=== PATIENT | male | born 1955 | race Caucasian/White ===

== ENCOUNTER 2017-07-27 10:07 | Emergency (ER) | payer BC ==
[~2017-07-27] VITALS: Ht 180.3 cm; Wt 113.4 kg
[~2017-07-27 10:07] MED LIST: CEFADROXIL500 MG PO; METFORMIN HCL500 MG
[2017-07-27] MEDS ORDERED: METOPROLOL-HCT1 EAC2 (10:41)
[2017-07-27] MEDS ORDERED: ASPIR 8181 MG (10:57)
== END 2017-07-27 12:28 | disposition home or self-care (01) ==
LOC: ER 10:07
DX: S61.022A Laceration with foreign body of left thumb without damage to nail, initial encounter (principal); W26.0XXA Contact with knife, initial encounter; Y93.89 Activity, other specified; Y92.89 Other specified places as the place of occurrence of the external cause; Y99.8 Other external cause status

== ENCOUNTER 2021-09-10 09:28 | Outpatient (CLI) | payer OTHER, BC ==
[~2021-09-10 09:28] MED LIST changes: +ASPIR 8181 MG; +METOPROLOL-HCT1 EAC2
[2021-09-10] MEDS ORDERED: ELIQUIS5 MG PO (11:45)
[2021-09-10] MEDS ORDERED: LIPITOR20 MG PO (11:46)
[2021-09-10] MEDS ORDERED: AMLODIPINE-OLM1 EAC2 (11:46)
[2021-09-10] MEDS ORDERED: HORIZANT300 MG PO (11:46)
[2021-09-10] MEDS ORDERED: [UNRECOGNIZED DRUG - OTHER] (11:48)
[2021-09-10] MEDS ORDERED: ZINC50 M1 PO (11:48)
== END 2021-09-10 09:30 | disposition home or self-care (01) ==
LOC: NUCLEAR 09:28
PROVIDERS: ATTEND General Practice
DX: I73.9 Peripheral vascular disease, unspecified (principal); R60.0 Localized edema

== ENCOUNTER 2021-09-10 11:05 | Emergency (ER) | payer OTHER, BC ==
[~2021-09-10] VITALS: Ht 180.3 cm; Wt 84.4 kg
[2021-09-10] MEDS ORDERED: ELIQUIS5 MG PO (11:45)
[2021-09-10] MEDS ORDERED: LIPITOR20 MG PO (11:46)
[2021-09-10] MEDS ORDERED: HORIZANT300 MG PO (11:46)
[2021-09-10] MEDS ORDERED: AMLODIPINE-OLM1 EAC2 (11:46)
[2021-09-10] MEDS ORDERED: [UNRECOGNIZED DRUG - OTHER] (11:48)
[2021-09-10] MEDS ORDERED: ZINC50 M1 PO (11:48)
== END 2021-09-10 13:04 | disposition home or self-care (01) ==
LOC: ER 11:05
DX: M79.605 Pain in left leg (principal); E11.9 Type 2 diabetes mellitus without complications; Z79.84 Long term (current) use of oral hypoglycemic drugs; I10 Essential (primary) hypertension; Z88.2 Allergy status to sulfonamides

== ENCOUNTER → 2021-09-13 09:10 | Outpatient (CLI) | payer OTHER, BC ==
[~2021-09-13 09:10] MED LIST changes: +AMLODIPINE-OLM1 EAC2; +ELIQUIS5 MG PO; +HORIZANT300 MG PO; +LIPITOR20 MG PO; +ZINC50 M1 PO; +[UNRECOGNIZED DRUG - OTHER]
== END | disposition home or self-care (01) ==
LOC: NUCLEAR 06:45
PROVIDERS: ATTEND General Practice
DX: I73.9 Peripheral vascular disease, unspecified (principal); R60.0 Localized edema

== ENCOUNTER 2021-09-20 08:00 | Outpatient (CLI) | payer OTHER, BC | END 2021-09-20 08:30 | disposition home or self-care (01) | LOC: PPH VACUNA 08:00 | PROVIDERS: ATTEND Emergency Medicine Pediatric Emergency Medicine | DX: Z23 Encounter for immunization (principal) ==